=== PATIENT | male | born 1960 | race Caucasian/White ===

== ENCOUNTER 2020-08-02 07:30 | Day surgery (SDC) | payer BC ==
[2020-08-01 14:05] VITALS: BMI 33.0
[2020-08-02] MEDS ORDERED: ONDANSETRON 4 MG/2 ML VIAL ONE ×2 (09:25→10:44)
[2020-08-02] MEDS ORDERED: DEXAMETHASONE SOD PHOSPHATE 4 MG/1 ML VIAL ONE ×2 (09:25→10:44)
[2020-08-02] MEDS ORDERED: PROPOFOL 20 ML ONE (09:26)
[2020-08-02] MEDS ORDERED: MIDAZOLAM HCL 2 MG/2 ML SINGLE DOSE VIAL ONE (09:26)
[2020-08-02] MEDS ORDERED: ceFAZolin SODIUM 1 GM VIAL ONE (10:32)
[2020-08-02] MEDS ORDERED: BUPIVACAINE HCL/PF 0.25% (2.5MG/ML) 10 ML VIAL IJ ONE (10:50)
[2020-08-02 12:36] VITALS: TEMP 98.2
[2020-08-02 12:41] VITALS: BP 139/75; PULSE 82
[2020-08-02] MEDS ORDERED: oxyCODONE HCL 5 MG TABLET PO PRN ×2 (13:55)
[2020-08-02] MEDS ORDERED: ONDANSETRON 4 MG/2 ML VIAL IVPUSH PRN (13:55)
[2020-08-02] MEDS ORDERED: LACTATED RINGERS SOLUTION 1,000 ML IV SCH (14:00)
== END 2020-08-02 12:30 | disposition home or self-care (01) ==
LOC: FASU 07:30
PROVIDERS: ATTEND Orthopaedic Surgery Sports Medicine
PROC: 0SBC4ZZ Excision of Right Knee Joint, Percutaneous Endoscopic Approach (ICD-10-PCS; principal; 2020-08-02 10:21)
DX: S83.241A Other tear of medial meniscus, current injury, right knee, initial encounter (principal); X58.XXXA Exposure to other specified factors, initial encounter; Y93.9 Activity, unspecified; Y92.9 Unspecified place or not applicable
CPT/HCPCS: 94760

== ENCOUNTER 2024-06-02 07:46 | Day surgery (SDC) | payer BC, OTHER ==
[2024-05-26 09:59] VITALS: BMI 33.0
[~2024-06-02 07:46] MED LIST: ACETAMINOPHEN 325 MG TABLET (FP) PO PRN; LACTATED RINGERS SOLUTION 1,000 ML IV SCH; ONDANSETRON 4 MG/2 ML VIAL IVPUSH PRN; oxyCODONE HCL 5 MG TABLET PO PRN
[2024-06-02] MEDS ORDERED: BUPIVACAINE HCL/PF 0.25% (2.5MG/ML) 10 ML VIAL ONE (09:15)
[2024-06-02] MEDS ORDERED: DEXAMETHASONE SOD PHOSPHATE 4 MG/1 ML VIAL ONE (09:37)
[2024-06-02] MEDS ORDERED: KETOROLAC TROMETHAMINE 30 MG/1 ML VIAL ONE (09:37)
[2024-06-02] MEDS ORDERED: ceFAZolin SODIUM 1 GM VIAL ONE (09:37)
[2024-06-02] MEDS ORDERED: PROPOFOL 20 ML ONE (09:37)
[2024-06-02] MEDS ORDERED: MIDAZOLAM HCL 2 MG/2 ML SINGLE DOSE VIAL ONE (09:38)
[2024-06-02] MEDS: BUPIVACAINE HCL/PF 0.25% (2.5MG/ML) 10 ML VIAL IJ ONE (10:21)
[2024-06-02] MEDS ORDERED: ACETAMINOPHEN INJECTION 100 ML ONE (10:23)
[2024-06-02 13:01] VITALS: RESP 20; TEMP 97
[2024-06-02 13:06] VITALS: BP 116/64; PULSE 62
== END 2024-06-02 12:55 | disposition home or self-care (01) ==
LOC: FASU 07:46
PROVIDERS: ATTEND Orthopaedic Surgery Sports Medicine
PROC: 0SJD4ZZ Inspection of Left Knee Joint, Percutaneous Endoscopic Approach (ICD-10-PCS; principal; 2024-06-02 10:21)
DX: S83.232A Complex tear of medial meniscus, current injury, left knee, initial encounter (principal); S83.282A Other tear of lateral meniscus, current injury, left knee, initial encounter; X58.XXXA Exposure to other specified factors, initial encounter; Y93.9 Activity, unspecified; Y92.9 Unspecified place or not applicable
CPT/HCPCS: 94760; J0131